=== PATIENT | female | born 1930 | race Caucasian/White ===

== ENCOUNTER → 2016-10-17 | Outpatient (CLI) | payer OTHER ==
[~2016-10-17] MED LIST: ALTACE10 MG PO; ASPIR 8181 MG PO; COREG 3.125M3.125 MG PO; FOLIC ACID 1 MG1 MG PO; HYDRALAZINE HCL50 MG PO; LORTAB 5-325 M1 EACH PO; NEURONTIN 100100 MG PO; VITAMIN D-32000 UNI1 PO; ZETIA10 MG PO; ZOCOR 40 MG TAB40 MG PO
== END ==
LOC: EDBD 12:15 → KOH-I 12:15
DX: Z01.811 Encounter for preprocedural respiratory examination (principal)
CPT/HCPCS: 71020